=== PATIENT | male | born 1995 | race Caucasian/White ===

== ENCOUNTER 2019-08-27 10:01 | Emergency (ER) | payer OTHER ==
[~2019-08-27] VITALS: Ht 188 cm; Wt 98.7 kg
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
--- NOTE | 2019-08-27 10:30 | NUR ---
SPENCER ROJAS AT BEDSIDE FOR EVALUATION
--- NOTE | 2019-08-27 10:45 | NUR ---
PT TO IMAGING
--- NOTE | 2019-08-27 12:25 | NUR ---
SPENCER [place] AT BEDSIDE
[2019-08-27 12:59] VITALS: BP 141/65
--- NOTE | 2019-08-27 13:56 | NUR ---
DISCHARGE ISTRUCTIONS REVIEWED
== END 2019-08-27 13:58 ==
LOC: ED 13:52
DX: S22.070A Wedge compression fracture of T9-T10 vertebra, initial encounter for closed fracture (principal); R51 Headache; M54.5 Low back pain; V49.49XA Driver injured in collision with other motor vehicles in traffic accident, initial encounter; Y93.89 Activity, other specified; Y92.410 Unspecified street and highway as the place of occurrence of the external cause; Y99.8 Other external cause status
CPT/HCPCS: 70450; 72072; 72110; 72128; 99285